=== PATIENT | female | born 1950 | race Caucasian/White ===

== ENCOUNTER → 2018-08-10 16:44 | Outpatient (CLI) | payer OTHER, MEDICARE, SELFPAY ==
--- NOTE | 2018-08-10 16:47 | BI_ITS ---
MAMMOGRAPHY - BILATERAL SCREENING REASON FOR EXAM: Female, 68 years old. Routine annual screening examination. PERTINENT HISTORY: Non-contributory. Remote left excisional breast biopsy. TECHNIQUE: Digital bilateral breast cornelia (3D mammographic acquisition) in the CC and MLO projections. 2-D mediolateral oblique (MLO) and craniocaudad (CC) views of both breasts were obtained. CAD: Full Field Digital Mammography with Computer Added Detection was performed. COMPARISON: Comparison is made with prior x-ray examination dated June 20, 2017 and May 13, 2015. FINDINGS: Breast Composition: There are scattered areas of fibroglandular density. There are no dominant masses or suspicious calcifications. There is a 1.7 cm x 2.3 cm well-defined nodular density in the superior retroareolar region of the right breast. There is also evidence of a 1.1 cm x 1 cm well-defined nodule in the slightly medial mid retroareolar region of the right breast. These are essentially unchanged. No other significant abnormalities are identified. There has been no significant change since the prior study. BI/SCREENING MAMM (CAD), BILAT IMPRESSION: Stable bilateral screening mammogram. Yearly follow-up mammogram recommended. (A) ASSESSMENT CATEGORY: BIRADS Category 2: Benign. A letter regarding these results will be sent to the patient by the facility within 30 days. Approximately 10% of breast cancers are not detected by mammography. A normal mammogram should not delay biopsy of a clinically suspicious abnormality. [id number] Electronically Signed: Vishal Hairston MD at 9:33 EST Tel [phone], Service support ,
== END ==
PROVIDERS: Family Provider Student in an Organized Health Care Education/Training Program; PCP Student in an Organized Health Care Education/Training Program; Referring Provider Student in an Organized Health Care Education/Training Program; Visit Provider Student in an Organized Health Care Education/Training Program
DX: Z12.31 Encounter for screening mammogram for malignant neoplasm of breast (principal)
CPT/HCPCS: 77063; 77067

== ENCOUNTER → 2018-12-01 16:02 | Outpatient (CLI) | payer OTHER, MEDICARE, SELFPAY ==
[2018-12-01 17:28] LABS: Absolute Lymphocyte Count 3.63 X10^3/ul (0.83-4.51); Absolute Neutrophil Count 3.5 X10^3/uL (2.0-7.7); Basophil# 0.03 X10^3/uL; Basophil% 0.4 % (0-1); Eosinophil# 0.18 X10^3/uL; Eosinophils% 2.3 % (0-5); Hematocrit 42.9 % (37-47); Hemoglobin 13.7 g/dl (12.0-15.0); Lymphocyte # 3.63 X10^3/ul (4.0); Lymphocyte % 45.8 % (19-41); Mean Corp Hgb Conc 31.9 g/gl (32-36); Mean Corpuscular Volume 94.1 fL (81-99); Mean Platelet Vol. 11.5 fl (6.2-12.0); Monocyte# 0.55 X10^3/uL; Monocyte% 6.9 % (0-10); Neutrophil # 3.51 X10^3/uL (2.7-7.7); Neutrophil % 44.3 % (47-70); Platelet Count 237 K/mm3 (150-450); RBC Distribution Width CV 13.1 % (11.6-14.6); RBC Distribution Width SD 43.8 fl (35.1-43.9); Red Blood Count 4.56 M/mm3 (4.2-5.4); White Blood Count 7.9 K/mm3 (4.4-11.0)
[2018-12-01 17:31] LABS: POSITIVE COUNT NO; POSITIVE DIFFERENTIAL NO; POSITIVE MORPHOLOGY NO
[2018-12-01 17:53] LABS: ALB/GLOB Ratio 1.4 RATIO (0.9-2.4); AST(SGOT) 19 U/L (15-37); Alanine Aminotransfer ALT/SGPT 23 U/L (13-56); Albumin, Serum 4.1 g/dL (3.2-5.0); Alkaline Phosphatase 75 U/L (45-117); Anion Gap 4 (5-15); BUN 14 mg/dL (7-18); BUN/Creat Ratio 25.7 RATIO (10-20); Calcium,Total 8.7 mg/dL (8.5-10.1); Chloride 107 mmol/L (98-107); Creatinine, Serum 0.54 mg/dL (0.55-1.02); EST Glomerular Filtration Rate 118 mL/min (>60); Est Glom Filt Rate - Afr Amer 143 mL/min (>60); Globulin 2.9 g/dL (2.2-4.2); Glucose 86 mg/dL (74-106); Potassium 4.1 mmol/L (3.5-5.1); Sodium Level 141 mmol/L (136-145)
== END ==
PROVIDERS: Family Provider Student in an Organized Health Care Education/Training Program; PCP Student in an Organized Health Care Education/Training Program; Referring Provider Dermatology Procedural Dermatology; Visit Provider Dermatology Procedural Dermatology
DX: Z79.899 Other long term (current) drug therapy (principal); L40.0 Psoriasis vulgaris
CPT/HCPCS: 36415; 80053; 85025

== ENCOUNTER → 2019-02-05 | Outpatient (CLI) | payer OTHER, MEDICARE, SELFPAY ==
[2019-02-05 16:38] LABS: Hemoglobin A1c 5.6 % (4.2-6.3)
== END | disposition home or self-care (01) ==
LOC: LAB 15:08
PROVIDERS: Family Provider Student in an Organized Health Care Education/Training Program; PCP Student in an Organized Health Care Education/Training Program; Referring Provider Nurse Practitioner Adult Health; Visit Provider Nurse Practitioner Adult Health
DX: R35.0 Frequency of micturition (principal)
CPT/HCPCS: 36415; 83036

== ENCOUNTER → 2019-05-12 | Outpatient (CLI) | payer OTHER, MEDICARE, SELFPAY ==
[2019-05-12 10:21] LABS: Absolute Lymphocyte Count 3.11 X10^3/uL (0.83-4.51); Absolute Neutrophil Count 5.1 X10^3/uL (2.0-7.7); Basophil# 0.05 X10^3/uL; Basophil% 0.5 % (0-1); Eosinophil# 0.36 X10^3/uL; Eosinophils% 3.9 % (0-5); Hematocrit 42.4 % (37-47); Hemoglobin 13.9 g/dL (12.0-15.0); Lymphocyte # 3.11 X10^3/ul (4.0); Mean Corp Hgb Conc 32.8 g/dL (32-36); Mean Corpuscular Hgb 30.8 pg (27.0-32.0); Mean Platelet Vol. 11.5 fl (6.2-12.0); Monocyte# 0.54 X10^3/uL; Monocyte% 5.9 % (0-10); NRBC Flagged by Analyzer 0 % (0-5); Neutrophil # 5.08 X10^3/uL (2.7-7.7); Neutrophil % 55.5 % (47-70); Platelet Count 226 K/mm3 (150-450); RBC Distribution Width CV 13.1 % (11.6-14.6); RBC Distribution Width SD 45.2 fl (35.1-43.9); Red Blood Count 4.51 M/mm3 (4.2-5.4); White Blood Count 9.2 K/mm3 (4.4-11.0)
[2019-05-12 10:41] LABS: ALB/GLOB Ratio 1.4 RATIO (0.9-2.4); AST(SGOT) 17 U/L (15-37); Alanine Aminotransfer ALT/SGPT 21 U/L (13-56); Albumin, Serum 3.8 g/dL (3.2-5.0); Alkaline Phosphatase 71 U/L (45-117); Anion Gap 4 (5-15); BUN 12 mg/dL (7-18); BUN/Creat Ratio 20.3 RATIO (10-20); Calcium,Total 8.8 mg/dL (8.5-10.1); Chloride 108 mmol/L (98-107); Creatinine, Serum 0.59 mg/dL (0.55-1.02); EST Glomerular Filtration Rate 108 mL/min (>60); Est Glom Filt Rate - Afr Amer 130 mL/min (>60); Globulin 2.7 g/dL (2.2-4.2); Glucose 92 mg/dL (74-106); Potassium 4.2 mmol/L (3.5-5.1); Protein, Total 6.5 g/dL (6.4-8.2); Sodium Level 143 mmol/L (136-145)
[2019-05-15 20:07] LABS: QNTFERON TB Mitogen Value > 10.00 IU/mL (.); QNTFERON TB Nil Value 0.04 IU/mL (.); QNTFERON TB1+ Ag Value 0.06 IU/mL (.); QNTFERON TB2+ Ag Value 0.05 IU/mL (.)
[2019-05-16 11:22] LABS: LDL, Direct 120295 144 mg/dL (0-99); QNTIFERON TB Positive Criteria Negative (Negative)
== END | disposition home or self-care (01) ==
LOC: LAB 09:29
PROVIDERS: Family Provider Student in an Organized Health Care Education/Training Program; PCP Student in an Organized Health Care Education/Training Program; Referring Provider Dermatology Procedural Dermatology; Visit Provider Dermatology Procedural Dermatology
DX: L40.0 Psoriasis vulgaris (principal); Z79.899 Other long term (current) drug therapy
CPT/HCPCS: 36415; 80053; 83721; 85025; 86480

== ENCOUNTER → 2019-08-17 15:34 | Outpatient (CLI) | payer MEDICARE, BC, SELFPAY ==
--- NOTE | 2019-08-17 15:37 | BI_ITS ---
MAMMOGRAPHY - BILATERAL SCREENING 3-D TOMOSYNTHESIS REASON FOR EXAM: Female, 69 years old. PERTINENT HISTORY: No significant family history. TECHNIQUE: 2-D mammograms and 3-D Tomosynthesis of the breast (s) were performed. CAD was performed. COMPARISON: May 13, 2015 FINDINGS: The breast composition is Scattered benign calcifications are seen. No dense spiculated masses or suspicious microcalcifications are identified. No architectural distortion is identified. There is no skin thickening or retraction. There has been no significant change since the prior study. The previously described cyst in the left breast is no longer identified in today's examination. No stellate lesion, microcalcifications, skin thickening or nipple retraction. On the right still noted faint densities seen in the upper aspect of the breast measures 2.1 x 1.7 cm and the other one measures 1.7 x 1.1 cm just inferior to the first one in the mediolateral oblique projection. There are benign calcifications seen on the on the right side. Both of these lesions are benign looking and slightly larger but less dense than in the study May 13, 2015. No skin thickening or retraction seen on the right side there are benign-appearing lymph nodes in both axillary areas. Recommend ultrasound of both breasts as in the previous examination ultrasound was done on the left only. BI/SCREEN MAMM (CAD) W/NILDA BILAT IMPRESSION: Cyst that was seen before in the left breast disappeared in today's examination. 2 faint nodule seen on the right side needs ultrasound to evaluate the lesions as they are slightly larger and less dense than before. ASSESSMENT CATEGORY: Needs ultrasound to evaluate the right, BIRADS-0 Approximately 10% of breast cancers are not detected by mammography. A normal mammogram should not delay biopsy of a clinically suspicious abnormality. Electronically Signed: Joellen Medina, at 8:51 EST Tel , Service support ,
== END ==
PROVIDERS: Family Provider Student in an Organized Health Care Education/Training Program; PCP Student in an Organized Health Care Education/Training Program; Referring Provider Student in an Organized Health Care Education/Training Program; Visit Provider Student in an Organized Health Care Education/Training Program
DX: Z12.31 Encounter for screening mammogram for malignant neoplasm of breast (principal)
CPT/HCPCS: 77063; 77067

== ENCOUNTER → 2019-08-30 13:42 | Outpatient (CLI) | payer MEDICARE, BC, SELFPAY ==
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
== END ==
PROVIDERS: Family Provider Student in an Organized Health Care Education/Training Program; PCP Student in an Organized Health Care Education/Training Program; Visit Provider Student in an Organized Health Care Education/Training Program
DX: R92.2 Inconclusive mammogram (principal)
CPT/HCPCS: 76642

== ENCOUNTER 2020-06-23 06:49 | Emergency (ER) | payer OTHER, MEDICARE, BC, SELFPAY ==
[2020-06-23 06:50] VITALS: PULSE 72; RESP 18; TEMP 36.6; O2SAT 95; BMI 33.0
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
[2020-06-23 06:56] VITALS: O2SAT 100
[2020-06-23 07:00] LABS: Absolute Neutrophil Count 6.1 X10^3/uL (2.0-7.7); Basophil# 0.02 X10^3/uL; Basophil% 0.2 % (0-1); Eosinophil# 0.27 X10^3/uL; Eosinophils% 2.5 % (0-5); Hematocrit 38.1 % (37-47); Hemoglobin 12.3 g/dL (12.0-15.0); Mean Corp Hgb Conc 32.3 g/dL (32-36); Mean Corpuscular Hgb 30.4 pg (27.0-32.0); Mean Corpuscular Volume 94.1 fL (81-99); Mean Platelet Vol. 11.4 fl (6.2-12.0); Monocyte% 6.6 % (0-10); NRBC Flagged by Analyzer 0 % (0-5); Neutrophil # 6.08 X10^3/uL (2.7-7.7); Neutrophil % 57.1 % (47-70); Platelet Count 279 K/mm3 (150-450); RBC Distribution Width CV 12.9 % (11.6-14.6); RBC Distribution Width SD 44.2 fl (35.1-43.9); Red Blood Count 4.05 M/mm3 (4.2-5.4); White Blood Count 10.7 K/mm3 (4.4-11.0)
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
[2020-06-23] MEDS: fentaNYL 100 MCG/2 ML Ampul 50 MCG IV (07:01)
[2020-06-23] MEDS: Ondansetron 4 MG/2 ML Vial IV ×2 (07:05→07:36)
[2020-06-23 07:11] LABS: Prothrombin Time (Protime)PT. 12.9 SECONDS (11.7-14.9)
[2020-06-23 07:14] LABS: Anion Gap 5 (5-15); BUN 20 mg/dL (7-18); BUN/Creat Ratio 30.8 RATIO (10-20); Calcium,Total 8.1 mg/dL (8.5-10.1); Chloride 104 mmol/L (98-107); Creatinine, Serum 0.65 mg/dL (0.55-1.02); EST Glomerular Filtration Rate 96 mL/min (>60); Est Glom Filt Rate - Afr Amer 116 mL/min (>60); Estimated Creatinine Clearance 43.92 ml/min; Glucose 253 mg/dL (74-106); Potassium 3.6 mmol/L (3.5-5.1); Sodium Level 137 mmol/L (136-145)
[2020-06-23] MEDS: Diphth,Pertuss(Acell),Tet Vac 0.5 ML Vial IM (07:32)
[2020-06-23 07:34] VITALS: BP 129/78; PULSE 69; PULSE 70; RESP 24; RESP 25; O2SAT 91; O2SAT 92
== END 2020-06-23 07:53 | disposition short-term general hospital (02) ==
PROVIDERS: Emergency Provider Emergency Medicine; PCP Student in an Organized Health Care Education/Training Program
DX: S06.0X1A Concussion with loss of consciousness of 30 minutes or less, initial encounter (principal); S22.42XA Multiple fractures of ribs, left side, initial encounter for closed fracture; S00.11XA Contusion of right eyelid and periocular area, initial encounter; S12.100A Unspecified displaced fracture of second cervical vertebra, initial encounter for closed fracture; R40.2410 Glasgow coma scale score 13-15, unspecified time; V53.5XXA Driver of pick-up truck or van injured in collision with car, pick-up truck or van in traffic accident, initial encounter; Y93.9 Activity, unspecified; Y92.9 Unspecified place or not applicable; M06.9 Rheumatoid arthritis, unspecified
CPT/HCPCS: 70450; 71045; 72125; 72170; 80048; 85025; 85610; 90715; 96374; 96375; 96376; 99285; A4216; J2405

== ENCOUNTER 2020-06-30 17:00 | Inpatient (IN) | payer OTHER, MEDICARE, BC, SELFPAY ==
[2020-06-30 17:16] VITALS: BP 114/69; PULSE 92; RESP 18; TEMP 36.8; O2SAT 99; BMI 30.4
--- NOTE | 2020-06-30 18:51 | NURSING ---
lidoderm patch in place to [facility] from [facility] - left in place and ordered by Dr. Levy
[2020-06-30] MEDS: Senna/Docusate Sodium 1 Tablet 2 TABLET PO (21:05)
[2020-06-30] MEDS: Gabapentin 300 MG Capsule PO (21:05)
[2020-06-30] MEDS: cycloBENZAPRine HCl 10 MG Tablet PO (21:05)
[2020-06-30] MEDS: Acetaminophen 500 MG Tablet 1000 MG PO (21:06)
[2020-06-30] MEDS: oxyCODONE 5 MG Tablet PO (21:09)
[2020-06-30 22:00] VITALS: BP 110/64; PULSE 89; RESP 18; TEMP 36.8; O2SAT 98
[2020-07-01] MEDS: oxyCODONE 5 MG Tablet PO ×2 (03:29→14:09)
[2020-07-01 05:51] LABS: Absolute Neutrophil Count 7.8 X10^3/uL (2.0-7.7); Basophil# 0.06 X10^3/uL; Basophil% 0.5 % (0-1); Eosinophil# 1.06 X10^3/uL; Hematocrit 25.8 % (37-47); Hemoglobin 7.9 g/dL (12.0-15.0); Lymphocyte % 18.1 % (19-41); Mean Corp Hgb Conc 30.6 g/dL (32-36); Mean Corpuscular Hgb 29.5 pg (27.0-32.0); Mean Corpuscular Volume 96.3 fL (81-99); Mean Platelet Vol. 9.8 fl (6.2-12.0); Monocyte# 1.75 X10^3/uL; Monocyte% 13.2 % (0-10); NRBC Flagged by Analyzer 0 % (0-5); Neutrophil # 7.77 X10^3/uL (2.7-7.7); Neutrophil % 58.5 % (47-70); POSITIVE DIFFERENTIAL YES; Platelet Count 670 K/mm3 (150-450); RBC Distribution Width CV 15.4 % (11.6-14.6); RBC Distribution Width SD 54.1 fl (35.1-43.9); Red Blood Count 2.68 M/mm3 (4.2-5.4); White Blood Count 13.3 K/mm3 (4.4-11.0)
[2020-07-01 06:00] LABS: Differential Indicated SCAN CRITERIA MET
[2020-07-01 06:09] LABS: ALB/GLOB Ratio 0.8 RATIO (0.9-2.4); AST(SGOT) 33 U/L (15-37); Alanine Aminotransfer ALT/SGPT 37 U/L (13-56); Albumin, Serum 2.4 g/dL (3.2-5.0); Alkaline Phosphatase 103 U/L (45-117); Anion Gap 1 (5-15); BUN 9 mg/dL (7-18); Calcium,Total 8.3 mg/dL (8.5-10.1); Chloride 103 mmol/L (98-107); Creatinine, Serum 0.39 mg/dL (0.55-1.02); EST Glomerular Filtration Rate 172 mL/min (>60); Est Glom Filt Rate - Afr Amer 208 mL/min (>60); Estimated Creatinine Clearance 43.92 ml/min; Globulin 3.2 g/dL (2.2-4.2); Glucose 98 mg/dL (74-106); Phosphorus 3.6 mg/dL (2.5-4.9); Potassium 4.3 mmol/L (3.5-5.1); Protein, Total 5.6 g/dL (6.4-8.2); Sodium Level 137 mmol/L (136-145)
[2020-07-01 06:22] LABS: Differential Comment SCANNED
[2020-07-01] MEDS: Acetaminophen 500 MG Tablet 1000 MG PO ×2 (06:31→14:01)
[2020-07-01] MEDS: cycloBENZAPRine HCl 10 MG Tablet PO ×3 (06:31→20:14)
[2020-07-01] MEDS: Gabapentin 300 MG Capsule PO ×3 (06:31→20:14)
[2020-07-01 08:49] VITALS: BP 109/67; PULSE 89; RESP 18; TEMP 36.6; O2SAT 93
[2020-07-01] MEDS: Multivitamins,Therapeutic Tablet 1 TABLET PO (09:07)
[2020-07-01] MEDS: Aspirin E.C. 81 MG Tablet PO (09:07)
[2020-07-01] MEDS: Vitamin E 400 UNITS Capsule PO (09:08)
[2020-07-01] MEDS: Lidocaine 5% Patch 1 PATCH TOPICAL (09:08)
[2020-07-01] MEDS: Polyethylene Glycol 3350 17 GM PACKET PO (09:10)
[2020-07-01] MEDS: Senna/Docusate Sodium 1 Tablet 2 TABLET PO (09:10)
[2020-07-01] MEDS: Calcium Carb/Vitamin D 1 TABLET Tablet PO (12:16)
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
--- NOTE | 2020-07-01 13:41 | REHABEVAL_ITS ---
Admission Information Status Changes from Prescreening?: Medical - patient is still retaining urine and the Lutz was discontinued at the previous hospital. Actual Problem List:: Skin Intergrity, Pain, ALteration in Cmfrt, Bowel, Constipation, Alteration in Sleep, Mobility Impaired, Self Care Deficit, Fluid Change-Dehydration, Alteration-Leisure Activ. Potential Problem List:: DVT, Bleeding, Infection, UTI, Aspiration, Falls, Skin Integrity, Depression Risk of Complications DVT: LMWH, HOLLIE Hose Bleeding: Monitor Lab Values, Nursing to Teach Precautions for anti-coagulation therapy., Wound, if applicable, to be assessed every shift., Stroke patients assessed for lethargy or change in status. Infection: Clinical Staff to Monitor for S/S of infection:, S/S of infection include fever, redness, warmth, etc. Urinary Tract Infection: Monitor for frequency, burning, discomfort, or incontinence., Nursing will obtain urine sample for urinalysis and C&S when ordered. Aspiration: Clinical staff will monitor for coughing, drooling, congestion., Speech will evaluate swallowing and dsyphasia., Nursing will monitor patient swallowing during meals. Falls: Patient will be evaluated for Fall Precautions, Patient will be placed on Fall Precautions as indicated per protocol. Skin Breakdown: Nursing will assess skin daily using assessment tool., Nursing will place on Skin Breakdown Precautions as indicated. Pain: Clinical staff will assess patient's pain level per protocol., Medications will be given, if needed, and the pain level reassessed., Other methods: Massage, distraction, decrease stimulus, etc. used PRN. Plan of Care Patient requires physician specializing in physical medicine and rehab oversight to provide close medical supervision of rehab issues including: Pain Management, Sleep Problems, Bowel and Bladder, Medical and co-morbidity Management, DVT prophylaxis, Rehabilitation Leadership, Coordination of treatment team Patient needs Physical Therapy: For a minimum of 1 hour, At least 5 out of 7 days Patient needs Physical Therapy to improve:: Mobility, Mobility, Mobility, Strengthening, Transfers, Stretching, ROM, Endurance, Stairs, Gait, Balance Patient needs Occupational Therapy: For a minimum of 1 hour, At least 5 out of 7 days Patient needs Occupational Therapy to improve ADL's incl.: Eating, Grooming, Bathing, Dressing, Toileting, Toilet transfers, Community Reintegration, Higher functioning activities, Household tasks, Adaptive Equipment, Splinting, Other activities as determined Patient requires speech therapy: For a minimum of 1 hour, At least 5 out of 7 days Patient requires speech therapy for: Swallowing, Cognition, Language Skills, Compensatory Strategies Patient requires 24/ Rehabilitation Nursing for: Pain Issues, Identifying and preventing risk factors, Monitoring and reporting current medical conditions, Assisting with ambulation, transfer, and all ADL's, Teaching patients about disease process and medications, Family teaching, Providing safe environment, Bowel and Bladder Issues, Skin integrity, Medication Management Patient needs Professor Of Environmental Studies/ Case Management for: Discharge Planning, Arranging Home Equipment or Services, Family Interventions Patient needs Dietary and Nutrition Services for: Adequate Nutrition, Nutritional Supplements, Nutritional Education Goals Patient will remain: free from falls, or injury at time of discharge. Patient will perform bed mobility at: MOD I level of assist. Patient will complete transfers from bed to chair at: MOD I level of assist. Patient will ambulate: with MOD I assist, with LRD, - - 400 feet Patient will complete upper body dressing at: MOD I level of assist. Patient will complete lower body dressing at: MOD I level of assist. Patient will complete toileting at: MOD I level of assist. Patient will perform bathing at: MOD I level of assist. Patient will complete grooming at: MOD I level of assist. Patient will complete home management skills at: MOD I level of assist. Patient will achieve: 12 stairs, at MOD I assist Patient will have pain level of: of 3 or less Patient's skin will: remain intact, free from infection. Patient will receive: adequate nutrition. Discharge Planning Pt Prognosis for Sig. Practical Improv. w/in Reasonable Time: Good Estimated Length of stay (days): 14 Anticipated D/C Destination: Home with Outpt Therapy Was Preadmission Assessment Accurate?: Yes
[2020-07-01 15:13] LABS: Pathologist Review Reviewed
[2020-07-01 19:51] VITALS: BP 98/63; PULSE 98; RESP 18; TEMP 37.2; O2SAT 92
[2020-07-01] MEDS: Acetaminophen 650 MG/20 ML UDC 975 MG PO (20:14)
[2020-07-01] MEDS: 0.9% Normal Saline 1,000 ML 100 ML IV (20:22)
[2020-07-01 20:45] LABS: Bacteria 0 SEEN /hpf (None Seen); Mucous, Urine 0 SEEN /hpf (<or=2+); Red Blood Cells-Urine 0 SEEN /hpf (0-5); White Blood Cells 0 SEEN /hpf (0-5)
[2020-07-01 20:47] LABS: Color, Urine Yellow (Yellow); Glucose, Dipstick Normal (Normal); Ketone-Dipstick Negative (Negative); Leukocyte Esterase-Dipstick Negative /ul (Negative); Nitrite-Dipstick Negative (Negative); Occult Blood-Urine Negative /ul (Negative); Protein-Dipstick Negative (Negative); Specific Gravity, Urine 1.015 (1.002-1.030); Urine Bilirubin Dipstick Negative (Negative); Urine Clarity Sl. Cloudy (Clear); Urine Urobilinogen Normal (Normal)
[2020-07-01 21:03] LABS: Amorphous Sediment 1+ PHOS; Squamous Epithelial Cells - UA 0-5 SEEN /hpf (5-10)
[2020-07-02] MEDS: oxyCODONE 5 MG Tablet PO ×3 (02:40→17:35)
[2020-07-02] MEDS: Gabapentin 300 MG Capsule PO (05:15)
[2020-07-02] MEDS: Acetaminophen 650 MG/20 ML UDC 975 MG PO ×3 (05:15→21:22)
[2020-07-02] MEDS: cycloBENZAPRine HCl 10 MG Tablet PO (05:15)
[2020-07-02] MEDS: 0.9% Normal Saline 1,000 ML 100 ML IV ×2 (06:12→15:54)
[2020-07-02] MEDS: Lidocaine 5% Patch 1 PATCH TOPICAL (09:17)
[2020-07-02] MEDS: Vitamin E 400 UNITS Capsule PO (09:17)
[2020-07-02] MEDS: Multivitamins,Therapeutic Tablet 1 TABLET PO (09:17)
[2020-07-02] MEDS: Aspirin E.C. 81 MG Tablet PO (09:17)
[2020-07-02] MEDS: Polyethylene Glycol 3350 17 GM PACKET PO (09:21)
[2020-07-02 09:26] VITALS: BP 123/88; PULSE 98; RESP 18; TEMP 37.3; O2SAT 92
[2020-07-02 10:00] VITALS: PULSE 98
[2020-07-02] MEDS: Enoxaparin 40 MG/0.4 ML Syringe SC (10:20)
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
--- NOTE | 2020-07-02 11:37 | NURSING ---
inserted #16 cochran catheter without difficulty obtained 700cc clear kamaljit urine Dr Leyv aware
[2020-07-02 12:30] LABS: Base Excess 3 mmol/L (-2 to +2); Bicarbonate 27.8 mmol/L (22-26); Blood Gas Specimen Type ART; O2 Delivery Device Room Air; PO2 64 mmHG (75-100); SITE R Radial; SO2 92 % (95-99); Total Carbon Dioxide 29 mmol/L; pCO2 42.7 mmHg (35-45); pH 7.42 (7.35-7.45)
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
[2020-07-02] MEDS: Calcium Carb/Vitamin D 1 TABLET Tablet PO (15:55)
[2020-07-02] MEDS: cycloBENZAPRine HCl 5 MG TABLET PO ×2 (15:55→21:22)
[2020-07-02 21:20] VITALS: BP 110/65; PULSE 95; RESP 18; TEMP 36.9; O2SAT 95
[2020-07-03] MEDS: 0.9% Normal Saline 1,000 ML 100 ML IV ×2 (01:00→10:51)
[2020-07-03] MEDS: oxyCODONE 5 MG Tablet PO ×5 (03:04→22:09)
[2020-07-03 05:43] LABS: Absolute Lymphocyte Count 2.45 X10^3/uL (0.83-4.51); Absolute Neutrophil Count 8.5 X10^3/uL (2.0-7.7); Basophil# 0.08 X10^3/uL; Basophil% 0.6 % (0-1); Eosinophil# 1.24 X10^3/uL; Eosinophils% 8.6 % (0-5); Hematocrit 29.6 % (37-47); Hemoglobin 9.1 g/dL (12.0-15.0); Lymphocyte # 2.45 X10^3/ul (4.0); Lymphocyte % 17.1 % (19-41); Mean Corp Hgb Conc 30.7 g/dL (32-36); Mean Corpuscular Hgb 30.2 pg (27.0-32.0); Mean Corpuscular Volume 98.3 fL (81-99); Mean Platelet Vol. 9.6 fl (6.2-12.0); Monocyte# 1.91 X10^3/uL; Monocyte% 13.3 % (0-10); NRBC Flagged by Analyzer 0.1 % (0-5); Neutrophil % 59.2 % (47-70); POSITIVE COUNT YES; POSITIVE DIFFERENTIAL YES; Red Blood Count 3.01 M/mm3 (4.2-5.4); White Blood Count 14.4 K/mm3 (4.4-11.0)
[2020-07-03 05:50] LABS: Differential Indicated SCAN CRITERIA MET; Platelet Count 970 K/mm3 (150-450)
[2020-07-03] MEDS: Acetaminophen 650 MG/20 ML UDC 975 MG PO ×3 (05:57→22:11)
[2020-07-03] MEDS: cycloBENZAPRine HCl 5 MG TABLET PO ×3 (05:57→22:10)
[2020-07-03 06:05] LABS: Anion Gap 4 (5-15); BUN 5 mg/dL (7-18); BUN/Creat Ratio 11.1 RATIO (10-20); Calcium,Total 8.8 mg/dL (8.5-10.1); Chloride 103 mmol/L (98-107); Creatinine, Serum 0.45 mg/dL (0.55-1.02); EST Glomerular Filtration Rate 147 mL/min (>60); Est Glom Filt Rate - Afr Amer 178 mL/min (>60); Estimated Creatinine Clearance 43.92 ml/min; Glucose 113 mg/dL (74-106); Potassium 4.1 mmol/L (3.5-5.1); Sodium Level 137 mmol/L (136-145)
[2020-07-03 06:09] LABS: Differential Comment SCANNED; Platelet Estimate SLT INC (ADEQ)
[2020-07-03] MEDS: Lidocaine 5% Patch 1 PATCH TOPICAL (06:11)
[2020-07-03] MEDS: Aspirin E.C. 81 MG Tablet PO (08:30)
[2020-07-03] MEDS: Vitamin E 400 UNITS Capsule PO (08:31)
[2020-07-03] MEDS: Multivitamins,Therapeutic Tablet 1 TABLET PO (08:31)
[2020-07-03] MEDS: NYSTATIN 500,000 UNIT/5 ML UDC 500000 UNIT PO ×2 (08:32→22:11)
[2020-07-03] MEDS: Enoxaparin 40 MG/0.4 ML Syringe SC (08:37)
[2020-07-03 09:36] VITALS: BP 128/77; PULSE 92; RESP 18; TEMP 36.8; O2SAT 93
[2020-07-03] MEDS: fentaNYL 25 MCG Patch TRANSDERM. (10:53)
--- NOTE | 2020-07-03 10:56 | NURSING ---
12.5 mcg duragesic patch removved from L posterior shoulder and new 25 mcg patch applied to R deltoid.
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
[2020-07-03] MEDS: Ketorolac 15 MG/ML Vial IV ×2 (12:52→22:12)
[2020-07-03 13:35] LABS: Pathologist Review Reviewed
--- NOTE | 2020-07-03 13:51 | CASEMGMT ---
Social Work IDT met with patient for Team meeting. Discussed patient's progress in therapy. Pt is CGA for transfers, ambulating 200 ft with FWW at CGA, completed 5 steps with 2HR at CGA-min, declined to complete ADL d/t pain. Physician adjusting pain medication to control better. ST is working on swallowing exercises to reduce aspiration. Explained Medicare insurance approved 11 days with EDC 07/11. Will ReTeam next week and SW to assist if pt needs alternative DC plan. Daughter is working remotely so she is currently caring for at home and does not need to return to her home soon. Will continue to follow. Francisca Porter, RAKAN DRILLING MANAGER
[2020-07-03] MEDS: Calcium Carb/Vitamin D 1 TABLET Tablet PO (15:00)
[2020-07-03 21:50] VITALS: BP 118/68; PULSE 98; RESP 20; TEMP 36.8; O2SAT 96
[2020-07-03] MEDS: Arthritis Pain Compound 60 CLICK TUBE TOPICAL (22:10)
[2020-07-03] MEDS: Senna/Docusate Sodium 1 Tablet 2 TABLET PO (22:11)
[2020-07-03] MEDS: 0.9% Saline Lock 10 ML Syringe IV (22:28)
[2020-07-04] MEDS: oxyCODONE 5 MG Tablet PO ×4 (03:17→21:04)
[2020-07-04] MEDS: cycloBENZAPRine HCl 5 MG TABLET PO ×3 (06:16→22:11)
[2020-07-04] MEDS: Ketorolac 15 MG/ML Vial IV ×3 (06:16→22:10)
[2020-07-04] MEDS: Acetaminophen 650 MG/20 ML UDC 975 MG PO ×3 (06:16→22:09)
[2020-07-04] MEDS: 0.9% Saline Lock 10 ML Syringe IV ×2 (06:16→22:28)
[2020-07-04] MEDS: Aspirin E.C. 81 MG Tablet PO (08:27)
[2020-07-04] MEDS: Multivitamins,Therapeutic Tablet 1 TABLET PO (08:27)
[2020-07-04] MEDS: Enoxaparin 40 MG/0.4 ML Syringe SC (08:28)
[2020-07-04] MEDS: NYSTATIN 500,000 UNIT/5 ML UDC 500000 UNIT PO ×2 (08:28→22:11)
[2020-07-04] MEDS: Senna/Docusate Sodium 1 Tablet 2 TABLET PO (08:28)
[2020-07-04] MEDS: Vitamin E 400 UNITS Capsule PO (08:28)
[2020-07-04] MEDS: Polyethylene Glycol 3350 17 GM PACKET PO (08:28)
[2020-07-04] MEDS: Arthritis Pain Compound 60 CLICK TUBE TOPICAL ×2 (08:28→22:11)
[2020-07-04 09:33] VITALS: BP 108/68; PULSE 91; RESP 18; TEMP 36.6; O2SAT 93
--- NOTE | 2020-07-04 10:34 | CASEMGMT ---
Social Work Met with patient. Followed up on questions or concerns. Pt shared details about her marriage. Pt reports mood improving and pain improving - overall feeling better. Pt sleeping well. Pt denies need for antidepressant or counseling resources at DC. Discussed DC plans. Pt spoke with and DIL and all would like pt to DC home. DIL can remain at their home to assist with caring for both parents. Pt reports great support system - a friend whom is a retired nurse offered to assist with pt, neighbors and brother to assist with yard work. Pt will ReTeam prior to DC to finalize DC plans. Pt would like to use the same [employer] company as her - whom she thinks is [employer]. Contacted [employer] with information. [employer] confirmed. Referral made for PT/OT/ST/SN/ANIMAL CARE PROVIDER/SW. Pt has no DME needs. Will continue to follow and assist. Francisca Porter, SECURITY INSTALLATION SALES TECHNICIAN RESEARCH LABORATORY TECHNICIAN
[2020-07-04] MEDS: Calcium Carb/Vitamin D 1 TABLET Tablet PO (12:38)
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
[2020-07-04 18:59] VITALS: BP 120/68; PULSE 98; RESP 16; TEMP 36.7; O2SAT 92
[2020-07-05] MEDS: oxyCODONE 5 MG Tablet PO ×2 (03:40→20:13)
[2020-07-05] MEDS: cycloBENZAPRine HCl 5 MG TABLET PO ×3 (06:26→22:36)
[2020-07-05] MEDS: Acetaminophen 650 MG/20 ML UDC 975 MG PO ×3 (06:27→22:33)
[2020-07-05] MEDS: Ketorolac 15 MG/ML Vial IV (06:31)
[2020-07-05] MEDS: 0.9% Saline Lock 10 ML Syringe IV ×2 (06:43→22:38)
[2020-07-05 07:13] VITALS: BP 113/69; PULSE 93; RESP 16; TEMP 36.8; O2SAT 93
[2020-07-05] MEDS: Multivitamins,Therapeutic Tablet 1 TABLET PO (08:33)
[2020-07-05] MEDS: Enoxaparin 40 MG/0.4 ML Syringe SC (08:33)
[2020-07-05] MEDS: Vitamin E 400 UNITS Capsule PO (08:33)
[2020-07-05] MEDS: Aspirin E.C. 81 MG Tablet PO (08:33)
[2020-07-05] MEDS: NYSTATIN 500,000 UNIT/5 ML UDC 500000 UNIT PO ×2 (08:34→22:36)
[2020-07-05] MEDS: Arthritis Pain Compound 60 CLICK TUBE TOPICAL ×2 (08:35→22:36)
[2020-07-05] MEDS: Calcium Carb/Vitamin D 1 TABLET Tablet PO (12:59)
[2020-07-05 19:13] VITALS: BP 119/70; PULSE 95; RESP 16; TEMP 36.9; O2SAT 94
[2020-07-06] MEDS: Acetaminophen 650 MG/20 ML UDC 975 MG PO ×3 (05:28→21:39)
[2020-07-06] MEDS: cycloBENZAPRine HCl 5 MG TABLET PO ×3 (05:29→21:40)
[2020-07-06 08:43] VITALS: BP 104/66; PULSE 96; RESP 12; TEMP 36.8; O2SAT 95
[2020-07-06] MEDS: Aspirin E.C. 81 MG Tablet PO (09:28)
[2020-07-06] MEDS: Vitamin E 400 UNITS Capsule PO (09:28)
[2020-07-06] MEDS: Multivitamins,Therapeutic Tablet 1 TABLET PO (09:28)
[2020-07-06] MEDS: NYSTATIN 500,000 UNIT/5 ML UDC 500000 UNIT PO ×2 (09:29→21:40)
[2020-07-06] MEDS: Enoxaparin 40 MG/0.4 ML Syringe SC (09:29)
[2020-07-06] MEDS: oxyCODONE 5 MG Tablet PO ×2 (09:59→17:42)
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
[2020-07-06] MEDS: fentaNYL 25 MCG Patch TRANSDERM. (10:37)
[2020-07-06] MEDS: Arthritis Pain Compound 60 CLICK TUBE TOPICAL ×2 (10:37→21:40)
[2020-07-06] MEDS: Calcium Carb/Vitamin D 1 TABLET Tablet PO (12:11)
[2020-07-06 19:23] VITALS: BP 120/77; PULSE 100; RESP 17; TEMP 36.8; O2SAT 97
[2020-07-06] MEDS: 0.9% Saline Lock 10 ML Syringe IV (21:54)
[2020-07-07] MEDS: oxyCODONE 5 MG Tablet PO ×3 (01:04→16:37)
[2020-07-07] MEDS: Acetaminophen 650 MG/20 ML UDC 975 MG PO ×3 (05:04→21:01)
[2020-07-07] MEDS: Enoxaparin 40 MG/0.4 ML Syringe SC (05:05)
[2020-07-07] MEDS: cycloBENZAPRine HCl 5 MG TABLET PO ×2 (05:06→13:03)
[2020-07-07 05:50] LABS: Absolute Lymphocyte Count 3.17 X10^3/uL (0.83-4.51); Absolute Neutrophil Count 8.6 X10^3/uL (2.0-7.7); Basophil# 0.12 X10^3/uL; Basophil% 0.7 % (0-1); Eosinophils% 12.5 % (0-5); Hematocrit 31.6 % (37-47); Hemoglobin 9.5 g/dL (12.0-15.0); Lymphocyte # 3.17 X10^3/ul (4.0); Lymphocyte % 19.8 % (19-41); Mean Corp Hgb Conc 30.1 g/dL (32-36); Mean Corpuscular Hgb 29.3 pg (27.0-32.0); Mean Corpuscular Volume 97.5 fL (81-99); Mean Platelet Vol. 9.7 fl (6.2-12.0); Monocyte# 1.99 X10^3/uL; Monocyte% 12.4 % (0-10); NRBC Flagged by Analyzer 0 % (0-5); Neutrophil # 8.63 X10^3/uL (2.7-7.7); Neutrophil % 53.8 % (47-70); POSITIVE COUNT YES; POSITIVE DIFFERENTIAL YES; RBC Distribution Width CV 15.5 % (11.6-14.6); Red Blood Count 3.24 M/mm3 (4.2-5.4)
[2020-07-07 05:57] LABS: Differential Indicated SCAN CRITERIA MET; Platelet Count 1210 K/mm3 (150-450)
--- NOTE | 2020-07-07 06:09 | NURSING ---
DR GUNN NOTIFIED OF PT'S CRITICAL HIGH PLATELET COUNT THIS MORNING. NO ORDERS GIVEN AT THIS TIME.
[2020-07-07 06:26] LABS: Anion Gap 4 (5-15); BUN 12 mg/dL (7-18); BUN/Creat Ratio 20.8 RATIO (10-20); Calcium,Total 9.3 mg/dL (8.5-10.1); Chloride 103 mmol/L (98-107); Creatinine, Serum 0.58 mg/dL (0.55-1.02); Differential Comment SCANNED; EST Glomerular Filtration Rate 110 mL/min (>60); Est Glom Filt Rate - Afr Amer 133 mL/min (>60); Estimated Creatinine Clearance 43.92 ml/min; Glucose 124 mg/dL (74-106); Potassium 4.2 mmol/L (3.5-5.1); Sodium Level 136 mmol/L (136-145)
[2020-07-07 06:36] LABS: Mucous, Urine 0 SEEN /hpf (<or=2+); Squamous Epithelial Cells - UA 0 SEEN /hpf (5-10)
[2020-07-07 06:38] LABS: Color, Urine Straw (Yellow); Glucose, Dipstick Normal (Normal); Ketone-Dipstick 5 mg/dl (Negative); Leukocyte Esterase-Dipstick 500 /ul (Negative); Nitrite-Dipstick Positive (Negative); Occult Blood-Urine 250 /ul (Negative); Protein-Dipstick 100 mg/dl (Negative); Urine Bilirubin Dipstick Negative (Negative); Urine Clarity Cloudy (Clear); Urine Urobilinogen Normal (Normal)
[2020-07-07 06:44] LABS: Bacteria 4+ /hpf (None Seen); Red Blood Cells-Urine 50-100 SEEN /hpf (0-5); White Blood Cells 25-50 SEEN /hpf (0-5)
[2020-07-07] MEDS: Vitamin E 400 UNITS Capsule PO (07:56)
[2020-07-07] MEDS: NYSTATIN 500,000 UNIT/5 ML UDC 500000 UNIT PO ×2 (07:57→21:06)
[2020-07-07] MEDS: Aspirin E.C. 81 MG Tablet PO (07:57)
[2020-07-07] MEDS: Arthritis Pain Compound 60 CLICK TUBE TOPICAL ×2 (07:57→21:06)
[2020-07-07] MEDS: Multivitamins,Therapeutic Tablet 1 TABLET PO (07:57)
[2020-07-07 08:55] VITALS: BP 106/61; PULSE 94; RESP 12; TEMP 37.2; O2SAT 94
[2020-07-07] MEDS: Calcium Carb/Vitamin D 1 TABLET Tablet PO (11:42)
[2020-07-07] MEDS: Ibuprofen 400 MG Tablet PO ×2 (11:42→21:02)
[2020-07-07 12:06] LABS: Pathologist Review Reviewed
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
[2020-07-07] MEDS: Cefadroxil 500 MG CAPSULE 1000 MG PO (16:30)
[2020-07-07 19:33] VITALS: BP 115/82; PULSE 93; RESP 16; TEMP 37.1; O2SAT 98
[2020-07-07 21:00] VITALS: PULSE 93; RESP 16; O2SAT 98
--- NOTE | 2020-07-08 01:50 | NURSING ---
Reviewed and agree with OR FIRST ASSIST REGISTERED NURSE documentation and charting.
[2020-07-08] MEDS: Acetaminophen 650 MG/20 ML UDC 975 MG PO ×3 (05:18→20:51)
[2020-07-08] MEDS: Ibuprofen 400 MG Tablet PO ×3 (05:20→20:52)
[2020-07-08] MEDS: Enoxaparin 40 MG/0.4 ML Syringe SC (05:55)
--- NOTE | 2020-07-08 05:59 | NURSING ---
verified with the rn and hospitalist that lovenox could be given with high platelet count
[2020-07-08 08:00] VITALS: BP 113/69; PULSE 95; RESP 17; TEMP 36.9; O2SAT 97
[2020-07-08] MEDS: Vitamin E 400 UNITS Capsule PO (09:05)
[2020-07-08] MEDS: Multivitamins,Therapeutic Tablet 1 TABLET PO (09:05)
[2020-07-08] MEDS: Aspirin E.C. 81 MG Tablet PO (09:05)
[2020-07-08] MEDS: Amox/Clavulanate 500 MG Tablet PO ×3 (09:06→18:19)
[2020-07-08] MEDS: oxyCODONE 5 MG Tablet PO (09:10)
[2020-07-08] MEDS: Arthritis Pain Compound 60 CLICK TUBE TOPICAL ×2 (11:09→20:49)
[2020-07-08] MEDS: Calcium Carb/Vitamin D 1 TABLET Tablet PO (11:09)
[2020-07-08] MEDS: NYSTATIN 500,000 UNIT/5 ML UDC 500000 UNIT PO ×2 (11:10→20:53)
--- NOTE | 2020-07-08 11:14 | PN_ITS ---
Progress Note Afebrile Vital signs stable Maintaining appropriate oxygen saturation on room air and the oxygen saturation is actually improved and ranging from 97 to 98% today. She is putting out more urine than she is taking in fluids. This may be due to continued mobilization of edema/fluids that developed due to hydration while at [facility]. Pain is better controlled with the addition of the Motrin to the drug regimen. She is ambulating without and assistive device today at a great pace. No LOB Denies epigastric pain, nausea, abd pain. No SOB with exertion. She does not appear to be in any distress Lungs - better air exchange HRRR...HR is in the 90's MM are dry...I once again reminded her to increase her fluids abd - soft, NT, ND, BS's present the rachele have been removed from the abd incision. The incision is intact with no dehiscence. There is no erythema and no DC. The superficial hematoma in the LLQ is stable and NT to palpation Impressions 1. Complicated urinary tract infection secondary to Lutz catheter which was inserted for large volume urine retention. An earlier urine culture grew a small amount of possible Enterococcus and a gram-negative anais but she had no pyuria at that time. We will discontinue the cefadroxil due to the possible Enterococcus and start Augmentin 500 mg every 8 hours x5 days. Await the results of the urine culture. 2. Intractable left posterior lateral chest pain secondary to fractures of ribs 9 and 10. Much better controlled today with the addition of a nonsteroidal anti-inflammatory drug to her regimen. No adverse side effects. We will need to continue to monitor H&H due to the possible irritative effects on the gastric mucosa of combination aspirin, Lovenox and Motrin. 3. Reactive thrombocytosis-continue ASA 81 mg daily She will follow up with Dr. Molina 1 month after DC for thrombocytosis. Continue the Motrin. She has an appt with Dr. Harris next tuesday at 12:15 to have the rib injected to control the pain STROKE Vital Signs/Narrative: Vital Signs Temp Pulse Resp BP Pulse Ox 07/08/20 08:00 98.5 F 95 17 113/69 97
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
[2020-07-08 20:45] VITALS: BP 108/70; PULSE 96; RESP 16; TEMP 36.7; O2SAT 95
[2020-07-09] MEDS: Ibuprofen 400 MG Tablet PO ×3 (05:39→19:52)
[2020-07-09] MEDS: Acetaminophen 650 MG/20 ML UDC 975 MG PO ×3 (05:39→19:51)
[2020-07-09] MEDS: Enoxaparin 40 MG/0.4 ML Syringe SC (05:39)
--- NOTE | 2020-07-09 05:40 | NURSING ---
staff preparing to answer light in another room and noted pt room light on. found sitting in the recliner reading her book. pt reports that she got up and completed her am care. pt was educated on issues of safety and needed to call staff for assistance until therapy releases her to be either independent or modified independent. pt acknowledges. call light and alarms where intact .
[2020-07-09 07:56] VITALS: BP 107/67; PULSE 94; RESP 18; TEMP 36.7; O2SAT 96
[2020-07-09] MEDS: Amox/Clavulanate 500 MG Tablet PO ×3 (08:33→16:57)
[2020-07-09] MEDS: Multivitamins,Therapeutic Tablet 1 TABLET PO (08:33)
[2020-07-09] MEDS: Aspirin E.C. 81 MG Tablet PO (08:33)
[2020-07-09] MEDS: Arthritis Pain Compound 60 CLICK TUBE TOPICAL ×2 (08:34→19:53)
[2020-07-09] MEDS: fentaNYL 25 MCG Patch TRANSDERM. (08:34)
[2020-07-09] MEDS: Vitamin E 400 UNITS Capsule PO (08:34)
[2020-07-09] MEDS: Loperamide 2 MG Capsule PO ×2 (10:47→16:56)
[2020-07-09] MEDS: Calcium Carb/Vitamin D 1 TABLET Tablet PO (11:40)
[2020-07-09 19:30] VITALS: BP 138/80; PULSE 92; RESP 18; TEMP 36.7; O2SAT 98
[2020-07-09 19:45] VITALS: PULSE 92; RESP 18; O2SAT 98
[2020-07-09] MEDS: NYSTATIN 500,000 UNIT/5 ML UDC 500000 UNIT PO (19:52)
--- NOTE | 2020-07-10 01:21 | NURSING ---
0050 pt awake and staff heard pt vomiting. pt was sitting up in the bed holding emesis bag. pt stated that she was getting ready to call to go to the br when she sat up and started to vomit. pt had an emesis of 120cc of partially digested food. oral done and wash cloth given for pt face. pt reports that she had a sour taste in her mouth prior to having an emesis. pt went on to say that she did not want any more of the new pills she received today d/t the diarrhea and vomiting she is having. hob placed in 30 degree to keep pt elevated . will continue to monitor, rn aware 0117 pt heard to vomiting again, 50cc of thick clear fluid was noted. pt stated she was still having nausea, rn aware and hospitalist to be notified
--- NOTE | 2020-07-10 01:47 | NURSING ---
Pt awakened d/t nausea/vomiting x2. Hospitalist, Dr Thomas, paged and gave n/o for Zofran PO 8mg TID/PRN.
[2020-07-10] MEDS: Ondansetron 8 MG Tablet PO (01:57)
--- NOTE | 2020-07-10 02:12 | NURSING ---
received new order for zofran to be given every 8 hours prn and was given at this time. pt reported that she was having discomfort in the middle of her chest above her sterum. pt denied any other sx and vs are stable bp; 108/75 and ap; 86, was afebrile 97. warm compress was placed on pt chest for comfort. pt discussed medications again and assurance given that she would be all right and the doctor would be notified in the am about her night. hob place at 35 degrees for pt comfort, rn aware and will continue to monitor
--- NOTE | 2020-07-10 03:30 | NURSING ---
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
[2020-07-10] MEDS: Enoxaparin 40 MG/0.4 ML Syringe SC (05:37)
[2020-07-10] MEDS: Acetaminophen 650 MG/20 ML UDC 975 MG PO ×3 (05:37→22:23)
--- NOTE | 2020-07-10 05:44 | NURSING ---
pt reports that she is still having pain in her chest area above her sterum and under lt breast.. pt reports that the warm compress did not help and she dozed off and on til now . pt states that her nausea is better but is very tired and wanted to wait to do adls this am . pt declined motrin until breakfast. was agreeable to getting weight this am . pt continues to question if she can stop taking the antibiotic for her uti . pt encouraged to discuss with the doctor during team today. vs are stable and pt is afebrile
[2020-07-10] MEDS: Vitamin E 400 UNITS Capsule PO (08:14)
[2020-07-10] MEDS: Aspirin E.C. 81 MG Tablet PO (08:14)
[2020-07-10] MEDS: Ibuprofen 400 MG Tablet PO ×3 (08:16→22:25)
[2020-07-10] MEDS: Multivitamins,Therapeutic Tablet 1 TABLET PO (08:16)
[2020-07-10] MEDS: NYSTATIN 500,000 UNIT/5 ML UDC 500000 UNIT PO ×2 (08:17→22:25)
[2020-07-10] MEDS: Arthritis Pain Compound 60 CLICK TUBE TOPICAL ×2 (08:21→22:26)
[2020-07-10 08:41] VITALS: BP 124/73; PULSE 86; RESP 18; TEMP 36.7; O2SAT 95
[2020-07-10 09:16] LABS: Absolute Neutrophil Count 5.8 X10^3/uL (2.0-7.7); Basophil# 0.17 X10^3/uL; Basophil% 1.3 % (0-1); Eosinophil# 1.65 X10^3/uL; Eosinophils% 12.6 % (0-5); Hematocrit 34.5 % (37-47); Hemoglobin 9.8 g/dL (12.0-15.0); Lymphocyte % 25.2 % (19-41); Mean Corp Hgb Conc 28.4 g/dL (32-36); Mean Corpuscular Hgb 29.4 pg (27.0-32.0); Mean Corpuscular Volume 103.6 fL (81-99); Mean Platelet Vol. 13.6 fl (6.2-12.0); Monocyte% 14.5 % (0-10); NRBC Flagged by Analyzer 0 % (0-5); Neutrophil # 5.79 X10^3/uL (2.7-7.7); POSITIVE COUNT YES; POSITIVE DIFFERENTIAL YES; POSITIVE MORPHOLOGY YES; RBC Distribution Width CV 15.9 % (11.6-14.6); Red Blood Count 3.33 M/mm3 (4.2-5.4); White Blood Count 13.1 K/mm3 (4.4-11.0)
[2020-07-10 09:25] LABS: Differential Indicated SCAN CRITERIA MET; Platelet Count 1128 K/mm3 (150-450)
[2020-07-10 09:33] LABS: Anion Gap 9 (5-15); BUN 12 mg/dL (7-18); BUN/Creat Ratio 19.9 RATIO (10-20); Calcium,Total 9.2 mg/dL (8.5-10.1); Chloride 103 mmol/L (98-107); EST Glomerular Filtration Rate 104 mL/min (>60); Est Glom Filt Rate - Afr Amer 126 mL/min (>60); Estimated Creatinine Clearance 43.92 ml/min; Glucose 113 mg/dL (74-106); Potassium 4.8 mmol/L (3.5-5.1); Sodium Level 137 mmol/L (136-145)
[2020-07-10 09:52] LABS: Differential Comment SCANNED; Toxic Granulation 1+
[2020-07-10 09:53] LABS: Atypical Lymphocyte 1+ %; Burr Cells 2+
--- NOTE | 2020-07-10 10:07 | CASEMGMT ---
Social Work IDT met with patient and via conference call for Team meeting. Discussed patient's progress in therapy. Pt is ambulating without AD, independently, on multiple surfaces with no loss of balance. Pt completed 8 steps at [facility], no issue. Pt is on a full liquid diet. ST to trial purees. Pt is anxious about upgrading diet. Pt having difficulty managing secretions SW contacted [facility] and pt would not qualify by Medicare to get secretion machine. stated he can purchase out of pocket. Pt is having difficulty with strength and ROM to left pat of mouth. ST continuing to work on strategies. ST reports cognition clears. received call from [facility] and SOC 07/12. Plan: DC home 07/11 Francisca Porter, JUNIOR DATABASE ADMINISTRATOR DIRECTOR MEDICAL ECONOMICS
[2020-07-10] MEDS: Cefadroxil 500 MG CAPSULE PO ×2 (10:34→22:26)
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
[2020-07-10] MEDS: Calcium Carb/Vitamin D 1 TABLET Tablet PO (12:12)
[2020-07-10 14:01] LABS: Pathologist Review Reviewed
[2020-07-10 14:35] VITALS: BP 125/72; PULSE 91; RESP 16; TEMP 36.6; O2SAT 96
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
[2020-07-10 19:26] VITALS: BP 113/81; PULSE 95; RESP 18; TEMP 36.9; O2SAT 96
[2020-07-11] MEDS: Acetaminophen 650 MG/20 ML UDC 975 MG PO (06:08)
[2020-07-11] MEDS: Ibuprofen 400 MG Tablet PO (06:10)
[2020-07-11] MEDS: Enoxaparin 40 MG/0.4 ML Syringe SC (06:10)
[2020-07-11] MEDS: Cefadroxil 500 MG CAPSULE PO (08:44)
[2020-07-11] MEDS: Aspirin E.C. 81 MG Tablet PO (08:44)
[2020-07-11] MEDS: NYSTATIN 500,000 UNIT/5 ML UDC 500000 UNIT PO (08:44)
[2020-07-11] MEDS: Vitamin E 400 UNITS Capsule PO (08:44)
[2020-07-11] MEDS: Arthritis Pain Compound 60 CLICK TUBE TOPICAL (08:44)
[2020-07-11] MEDS: Multivitamins,Therapeutic Tablet 1 TABLET PO (08:44)
[2020-07-11 09:23] VITALS: PULSE 99; RESP 14; O2SAT 93
[2020-07-11 09:24] VITALS: BP 119/61; PULSE 99; RESP 16; TEMP 36.6; O2SAT 93
[2020-07-11] MEDS: Calcium Carb/Vitamin D 1 TABLET Tablet PO (11:11)
[2020-07-11 11:36] VITALS: BP 125/72; PULSE 91; RESP 16; TEMP 36.6; O2SAT 96
== END 2020-07-11 12:10 | disposition home or self-care (01) | DRG 187 ==
PROVIDERS: Admitting Provider Internal Medicine; PCP Student in an Organized Health Care Education/Training Program; Visit Provider Internal Medicine
DX: J90 Pleural effusion, not elsewhere classified (principal); D62 Acute posthemorrhagic anemia; T83.511A Infection and inflammatory reaction due to indwelling urethral catheter, initial encounter; E78.5 Hyperlipidemia, unspecified; E55.9 Vitamin D deficiency, unspecified; L40.50 Arthropathic psoriasis, unspecified; F17.210 Nicotine dependence, cigarettes, uncomplicated; S12.100D Unspecified displaced fracture of second cervical vertebra, subsequent encounter for fracture with routine healing; S22.42XD Multiple fractures of ribs, left side, subsequent encounter for fracture with routine healing; Z90.81 Acquired absence of spleen; S36.039D Unspecified laceration of spleen, subsequent encounter; M43.12 Spondylolisthesis, cervical region; V43.52XD Car driver injured in collision with other type car in traffic accident, subsequent encounter; M06.9 Rheumatoid arthritis, unspecified; E66.9 Obesity, unspecified; Z68.30 Body mass index [BMI] 30.0-30.9, adult; S00.11XD Contusion of right eyelid and periocular area, subsequent encounter; N30.90 Cystitis, unspecified without hematuria; Y84.6 Urinary catheterization as the cause of abnormal reaction of the patient, or of later complication, without mention of misadventure at the time of the procedure; B96.20 Unspecified Escherichia coli [E. coli] as the cause of diseases classified elsewhere
CPT/HCPCS: 36415; 36600; 71046; 71250; 80048; 80053; 81001; 82803; 83735; 84100; 85025; 87077; 87086; 87088; 87186; 92507; 92523; 92526; 92610; 97110; 97116; 97162; 97166; 97530; 97535; 97802; 99406; J7030; A4216

== ENCOUNTER → 2020-08-07 12:37 | Outpatient (CLI) | payer MEDICARE, BC, SELFPAY ==
[2020-06-30 17:16] VITALS: BMI 30.4
[2020-08-07 14:18] LABS: Amphetamine Urine VISTA NEGATIVE (<1000 ng/mL); Barbiturate Urine VISTA NEGATIVE (< 200 ng/mL); Benzodiazepine Urine VISTA NEGATIVE (< 200 ng/mL); Cocaine Urine VISTA NEGATIVE (< 300 ng/mL); Ecstacy Urine VISTA NEGATIVE (< 500 ng/mL); Methadone Urine VISTA NEGATIVE (< 300 ng/mL); PCP Urine VISTA NEGATIVE (< 25 ng/mL); THC Urine VISTA NEGATIVE (< 50 ng/mL); Vista UDS pH Range 5
== END ==
PROVIDERS: PCP Student in an Organized Health Care Education/Training Program; Referring Provider Anesthesiology Pain Medicine; Visit Provider Anesthesiology Pain Medicine
DX: F11.20 Opioid dependence, uncomplicated (principal)
CPT/HCPCS: 80307